=== PATIENT | female | born 1985 | race African-American/Black ===

== ENCOUNTER 2018-04-28 07:59 | Emergency (ER) | payer MEDICAID ==
[~2018-04-28] VITALS: Ht 157.5 cm; Wt 106.6 kg
[~2018-04-28 07:59] MED LIST: FERR325T50 PO; FOLI1TAB6 PO; PREN-96 PO
[2018-04-28 08:04] VITALS: BP 110/62
== END 2018-04-28 09:01 | disposition home or self-care (01) ==
LOC: ER 07:59
DX: J03.90 Acute tonsillitis, unspecified (principal); J45.909 Unspecified asthma, uncomplicated; Z79.899 Other long term (current) drug therapy; R11.0 Nausea

== ENCOUNTER → 2019-10-02 | Emergency (ER) | payer MEDICAID ==
[~2019-10-02] VITALS: Ht 162.6 cm; Wt 113.4 kg
[~2019-10-02] MED LIST changes: -FOLI1TAB6 PO; -PREN-96 PO
[2019-10-02 10:40] LABS: Urine Bacteria NONE SEEN /hpf (None Seen); Urine Blood Negative /uL (Negative); Urine WBC 1 /hpf (0 - 5)
[2019-10-02 10:52] LABS: Basophils # (auto) 0.1 10 ^3/uL (0-0.2); Eosinophils # (auto) 0 10 ^3/uL (0-0.8); Monocytes # (auto) 0.5 10 ^3/uL (0-1.3); Monocytes % (auto) 5.7 % (0.0-12.0); Nucleated Red Blood Cells % 0.1 %; White Blood Cell 8.4 10^3/uL (4.4-10.8)
[2019-10-02 10:53] LABS: Basophils % (auto) 1.3 % (0.0-2.0); Eosinophils % (auto) 0.3 % (0.0-7.0); Hematocrit 31.6 % (36.0-46.0); Hemoglobin 10.8 g/dL (12.2-16.2); Lymphocytes # (auto) 2.6 10 ^3/uL (0.4-5.4); Lymphocytes % (auto) 30.6 % (10.0-50.0); Mean Corpuscular Hemoglobin 24.7 pg (28.0-32.0); Mean Corpuscular Hgb Conc. 34.2 g/dL (32.0-36.0); Mean Corpuscular Volume 72.2 fL (80.0-100.0); Neutrophils # (auto) 5.2 10 ^3/uL (1.6-8.6); Neutrophils % (auto) 62.1 % (37.0-80.0); Platelet Count (auto) 260 10^3/uL (140-450); Red Blood Cells 4.37 10^6/uL (4.0-5.20)
[2019-10-02 10:54] LABS: Red Cell Distribution Width 21.5 % (11.8-14.3)
[2019-10-02 11:10] LABS: Albumin 3.5 g/dL (3.4-5.0); Calcium 8.7 mg/dL (8.5-10.1); Potassium 3.8 mmol/L (3.5-5.1)
[2019-10-02 11:13] LABS: BUN/Creatinine Ratio 8.1
[2019-10-02 11:16] LABS: Bilirubin, Total 1.1 mg/dL (0.2-1.0); Total Protein 7.7 g/dL (6.4-8.2)
[2019-10-02 12:29] VITALS: BP 135/83
== END | disposition home or self-care (01) ==
LOC: ER 10:18
DX: K76.89 Other specified diseases of liver (principal); J45.909 Unspecified asthma, uncomplicated
CPT/HCPCS: 36415; 74176; 80053; 81001; 81025; 85025

== ENCOUNTER 2020-02-16 08:12 | Emergency (ER) | payer MEDICAID ==
[~2020-02-16] VITALS: Ht 157.5 cm; Wt 104.3 kg
[2020-02-16 08:41] LABS: Basophils # (auto) 0.1 10 ^3/uL (0-0.2); Eosinophils # (auto) 0 10 ^3/uL (0-0.8); Lymphocytes # (auto) 2.1 10 ^3/uL (0.4-5.4); Mean Corpuscular Hemoglobin 24.9 pg (28.0-32.0); Mean Corpuscular Hgb Conc. 33.7 g/dL (32.0-36.0); Mean Corpuscular Volume 73.9 fL (80.0-100.0); Monocytes # (auto) 0.3 10 ^3/uL (0-1.3)
[2020-02-16 08:42] LABS: Basophils % (auto) 0.8 % (0.0-2.0); Eosinophils % (auto) 0.3 % (0.0-7.0); Hemoglobin 10.1 g/dL (12.2-16.2); Lymphocytes % (auto) 19.9 % (10.0-50.0); Monocytes % (auto) 3.4 % (0.0-12.0); Neutrophils # (auto) 7.8 10 ^3/uL (1.6-8.6); Neutrophils % (auto) 75.6 % (37.0-80.0); Nucleated Red Blood Cells % 0.2 %; Platelet Count (auto) 222 10^3/uL (140-450); Red Blood Cells 4.06 10^6/uL (4.0-5.20); White Blood Cell 10.4 10^3/uL (4.4-10.8)
[2020-02-16 08:45] LABS: Urine Bacteria FEW /hpf (None Seen); Urine Blood Negative /uL (Negative); Urine Specific Gravity 1.011 (1.001-1.035); Urine WBC 1 /hpf (0 - 5)
[2020-02-16 08:45] LABS: Red Cell Distribution Width 23.2 % (11.8-14.3)
[2020-02-16 08:55] LABS: Albumin 2.6 g/dL (3.4-5.0); BUN/Creatinine Ratio 6.5; Calcium 8.7 mg/dL (8.5-10.1); Potassium 3.7 mmol/L (3.5-5.1)
[2020-02-16 08:59] LABS: Bilirubin, Total 0.7 mg/dL (0.2-1.0); Total Protein 7.4 g/dL (6.4-8.2)
[2020-02-16 09:59] VITALS: BP 110/61
== END 2020-02-16 10:00 | disposition home or self-care (01) ==
LOC: ER 08:12
DX: O46.92 Antepartum hemorrhage, unspecified, second trimester (principal); O99.012 Anemia complicating pregnancy, second trimester; O25.12 Malnutrition in pregnancy, second trimester; Z3A.17 17 weeks gestation of pregnancy
CPT/HCPCS: 36415; 76805; 80053; 81001; 84702; 85025

== ENCOUNTER 2020-03-22 08:16 | Observation (INO) | payer MEDICAID ==
[~2020-03-22] VITALS: Ht 157.5 cm; Wt 114.3 kg
[2020-03-22 08:26] VITALS: BP 112/83
[2020-03-22] MEDS ORDERED: PREN-96 PO (10:00)
== END 2020-03-22 11:55 | disposition home or self-care (01) ==
LOC: ER 08:16 → LDRP 09:09
PROVIDERS: ADMIT Obstetrics & Gynecology; ATTEND Obstetrics & Gynecology
DX: O43.92 Unspecified placental disorder, second trimester (principal); O26.892 Other specified pregnancy related conditions, second trimester; R10.9 Unspecified abdominal pain; O99.512 Diseases of the respiratory system complicating pregnancy, second trimester; J45.909 Unspecified asthma, uncomplicated; Z87.59 Personal history of other complications of pregnancy, childbirth and the puerperium; Z3A.22 22 weeks gestation of pregnancy
CPT/HCPCS: 59025; 76815; 81002; 99284; G0378

== ENCOUNTER 2020-03-31 10:18 | Emergency (ER) | payer MEDICAID ==
[~2020-03-31] VITALS: Ht 157.5 cm; Wt 113.9 kg
[~2020-03-31 10:18] MED LIST changes: -FERR325T50 PO; +PREN-96 PO
[2020-03-31 10:27] VITALS: BP 122/69
== END 2020-03-31 12:25 | disposition home or self-care (01) ==
LOC: ER 10:18
DX: O26.892 Other specified pregnancy related conditions, second trimester (principal); J03.90 Acute tonsillitis, unspecified; Z3A.24 24 weeks gestation of pregnancy; Z20.828 Contact with and (suspected) exposure to other viral communicable diseases
CPT/HCPCS: 36415; 87070; 87426; 87880

== ENCOUNTER 2020-06-10 14:48 | Observation (INO) | payer MEDICAID | END 2020-06-10 17:11 | disposition home or self-care (01) | LOC: LDRP 14:48 | PROVIDERS: ADMIT Obstetrics & Gynecology; ATTEND Obstetrics & Gynecology | DX: O9A.213 Injury, poisoning and certain other consequences of external causes complicating pregnancy, third trimester (principal); W22.8XXA Striking against or struck by other objects, initial encounter; Y93.89 Activity, other specified; Y92.89 Other specified places as the place of occurrence of the external cause; Z3A.34 34 weeks gestation of pregnancy | CPT/HCPCS: 59025; 76818; 81002; G0378 ==

== ENCOUNTER 2020-08-05 14:02 | Emergency (ER) | payer MEDICAID ==
[~2020-08-05] VITALS: Ht 157.5 cm; Wt 114.3 kg
[2020-08-05] MEDS ORDERED: SODIUM CHLORIDE 0.9% 1,000 ML IVB ONE (14:15)
[2020-08-05 15:29] LABS: Basophils # (auto) 0 10 ^3/uL (0-0.2); Basophils % (auto) 0.7 % (0.0-2.0); Eosinophils # (auto) 0.1 10 ^3/uL (0-0.8); Hematocrit 26.9 % (36.0-46.0); Hemoglobin 9.1 g/dL (12.2-16.2); Mean Corpuscular Hemoglobin 28.3 pg (28.0-32.0); Mean Corpuscular Hgb Conc. 33.8 g/dL (32.0-36.0); Mean Corpuscular Volume 83.8 fL (80.0-100.0); Monocytes # (auto) 0.3 10 ^3/uL (0-1.3); Monocytes % (auto) 5.3 % (0.0-12.0); Neutrophils # (auto) 3.8 10 ^3/uL (1.6-8.6); Nucleated Red Blood Cells % 0.4 %; Platelet Count (auto) 175 10^3/uL (140-450); Red Blood Cells 3.21 10^6/uL (4.0-5.20); Red Cell Distribution Width 18.8 % (11.8-14.3); White Blood Cell 6.2 10^3/uL (4.4-10.8)
[2020-08-05] MEDS ORDERED: HYDROmorphone HCL 2 MG/ML VL IV ONE (15:30)
[2020-08-05] MEDS ORDERED: ONDANSETRON HCL 4 MG/2 ML VIAL IV ONE (15:30)
[2020-08-05 15:52] LABS: Chloride 113 mmol/L (98-107); Potassium 3.3 mmol/L (3.5-5.1); Sodium 143 mmol/L (136-145)
[2020-08-05 15:59] LABS: Partial Thromboplastin Time 28.3 sec (23.0-31.2)
[2020-08-05 16:02] LABS: Alanine Aminotransferase 23 U/L (13-56); Albumin 2.6 g/dL (3.4-5.0); Alkaline Phosphatase 91 U/L (45-117); Anion Gap 6 (5-15); Aspartate Aminotransferase 16 U/L (15-37); BUN/Creatinine Ratio 11.5; Bilirubin, Total 1.2 mg/dL (0.2-1.0); Blood Urea Nitrogen 10 mg/dL (7-18); Calcium 7.5 mg/dL (8.5-10.1); Carbon Dioxide 24 mmol/L (21-32); GFR African American 96 mL/min; GFR Non-African American 80 mL/min; Glucose 71 mg/dL (74-106); Total Protein 6.5 g/dL (6.4-8.2)
[2020-08-05 17:38] VITALS: BP 126/59
== END 2020-08-05 19:00 | disposition home or self-care (01) ==
LOC: ER 14:02
DX: G97.1 Other reaction to spinal and lumbar puncture (principal); D64.9 Anemia, unspecified; J45.909 Unspecified asthma, uncomplicated; Z90.49 Acquired absence of other specified parts of digestive tract
CPT/HCPCS: 36415; 70450; 71046; 80053; 83880; 84484; 85025; 85379; 85610; 85730; 96361; 96374; 96375; 99285; J1170; J2405; J7030

== ENCOUNTER 2021-01-17 20:13 | Emergency (ER) | payer MEDICAID ==
[~2021-01-17] VITALS: Ht 157.5 cm; Wt 111.1 kg
[2021-01-18 04:45] VITALS: BP 113/73
== END 2021-01-18 01:25 | disposition home or self-care (01) ==
LOC: EDBD 20:14 → ER 20:14
DX: J02.9 Acute pharyngitis, unspecified (principal); J45.909 Unspecified asthma, uncomplicated; E66.9 Obesity, unspecified; Z68.41 Body mass index [BMI] 40.0-44.9, adult; Z90.49 Acquired absence of other specified parts of digestive tract

== ENCOUNTER 2021-03-16 20:35 | Emergency (ER) | payer MEDICAID ==
[~2021-03-16] VITALS: Ht 165.1 cm; Wt 83.9 kg
[2021-03-16] MEDS ORDERED: ACETAMINOPHEN 500 MG TAB PO ONE (21:45)
[2021-03-16 22:10] LABS: Basophils # (auto) 0 10 ^3/uL (0-0.2); Eosinophils # (auto) 0 10 ^3/uL (0-0.8); Eosinophils % (auto) 0.3 % (0.0-7.0); Hemoglobin 9.8 g/dL (12.2-16.2); Red Blood Cells 3.96 10^6/uL (4.0-5.20)
[2021-03-16 22:12] LABS: Basophils % (auto) 0.4 % (0.0-2.0); Hematocrit 29.6 % (36.0-46.0); Lymphocytes # (auto) 0.8 10 ^3/uL (0.4-5.4); Lymphocytes % (auto) 10.3 % (10.0-50.0); Mean Corpuscular Hemoglobin 24.9 pg (28.0-32.0); Mean Corpuscular Hgb Conc. 33.2 g/dL (32.0-36.0); Mean Corpuscular Volume 74.9 fL (80.0-100.0); Monocytes # (auto) 0.4 10 ^3/uL (0-1.3); Monocytes % (auto) 5.5 % (0.0-12.0); Neutrophils # (auto) 6.2 10 ^3/uL (1.6-8.6); Neutrophils % (auto) 83.5 % (37.0-80.0); Nucleated Red Blood Cells % 0.2 %; White Blood Cell 7.4 10^3/uL (4.4-10.8)
[2021-03-16 22:13] LABS: Red Cell Distribution Width 20.8 % (11.8-14.3)
[2021-03-16 22:26] LABS: Albumin 3.5 g/dL (3.4-5.0); Calcium 8.3 mg/dL (8.5-10.1); Potassium 3.3 mmol/L (3.5-5.1)
[2021-03-16 22:29] LABS: Total Protein 7.6 g/dL (6.4-8.2)
[2021-03-17] MEDS ORDERED: KETOROLAC TROMETH 30 MG/ML 1ML VIAL IM ONE (03:15)
[2021-03-17] MEDS ORDERED: ONDANSETRON ODT 4 MG TAB PO ONE (03:15)
[2021-03-17 04:38] VITALS: BP 111/78
== END 2021-03-17 04:43 | disposition home or self-care (01) ==
LOC: EDBD 20:35 → ER 20:37
DX: U07.1 COVID-19 (principal); B34.9 Viral infection, unspecified; J45.909 Unspecified asthma, uncomplicated; Z90.710 Acquired absence of both cervix and uterus
CPT/HCPCS: 36415; 71045; 80053; 83605; 85025; 87426

== ENCOUNTER 2022-05-17 22:33 | Emergency (ER) | payer BC, MEDICAID | END 2022-05-17 22:54 | disposition left against medical advice (07) | LOC: ER 22:33 | DX: R06.02 Shortness of breath (principal); Z53.21 Procedure and treatment not carried out due to patient leaving prior to being seen by health care provider ==

== ENCOUNTER 2023-07-16 17:54 | Emergency (ER) | payer BC, MEDICAID ==
[~2023-07-16] VITALS: Ht 157.5 cm; Wt 104.8 kg
[2023-07-16] MEDS ORDERED: AUG875T PO (19:58)
[2023-07-16] MEDS ORDERED: FLUT1SPR5 (19:58)
[2023-07-16] MEDS ORDERED: ALBU108A5 IN (19:58)
[2023-07-16] MEDS ORDERED: PRED20TA2 PO (19:58)
[2023-07-16] MEDS ORDERED: AMOX500C2 PO (19:58)
[2023-07-16 20:25] VITALS: BP 127/75; PULSE 79; RESP 16; TEMP 97; O2SAT 100
== END 2023-07-16 20:31 | disposition home or self-care (01) ==
LOC: ER 17:54
DX: J01.90 Acute sinusitis, unspecified (principal); R59.1 Generalized enlarged lymph nodes; H92.03 Otalgia, bilateral; J45.909 Unspecified asthma, uncomplicated; Z90.49 Acquired absence of other specified parts of digestive tract

== ENCOUNTER 2024-01-21 09:45 | Emergency (ER) | payer BC, MEDICAID ==
[~2024-01-21] VITALS: Ht 157.5 cm; Wt 112.0 kg
[~2024-01-21 09:45] MED LIST changes: +ALBU108A5 IN; +AMOX500C2 PO; +AUG875T PO; +FLUT1SPR5; +PRED20TA2 PO
[2024-01-21 10:51] VITALS: BP 118/85; PULSE 78; RESP 18; TEMP 97.7; O2SAT 98
[2024-01-21] MEDS ORDERED: OLOP0.1S7 OP (11:36)
[2024-01-21] MEDS ORDERED: FLUT1SPR5 (11:36)
[2024-01-21] MEDS ORDERED: IBUP1TAB5 PO (11:36)
[2024-01-21] MEDS ORDERED: SODI1KIT2 (11:36)
== END 2024-01-21 11:34 | disposition home or self-care (01) ==
LOC: ER 09:52
DX: J30.9 Allergic rhinitis, unspecified (principal); H10.10 Acute atopic conjunctivitis, unspecified eye; Z98.890 Other specified postprocedural states; Z79.899 Other long term (current) drug therapy